=== PATIENT | male | born 1960 | race Caucasian/White ===

== ENCOUNTER → 2020-06-22 | Outpatient (CLI) | payer MEDICAID ==
--- NOTE | 2020-06-22 09:15 | CT ---
EXAMINATION TYPE: CT sinus wo con DATE OF EXAM: 06/22/2020 COMPARISON: None HISTORY: chronic sinus drainage CT DLP: 679.[address] of the paranasal sinuses was performed in the axial and coronal planes. Bone and soft tissue settings are submitted. The paranasal sinuses demonstrate normal aeration and development. Mucous retention cyst right maxillary sinus measuring 2.2 x 1.9 cm. Remaining paranasal sinuses are w ell-aerated. The osteal meatal units are patent bilaterally. The nasal septum is midline. No bony destructive changes are seen within the field of view. IMPRESSION: Mucous retention cyst right maxillary sinus measuring 2.2 x 1.9 cm.
== END | disposition home or self-care (01) ==
LOC: RADCTMAIN 08:29
PROVIDERS: ATTEND Otolaryngology
DX: J34.1 Cyst and mucocele of nose and nasal sinus (principal); J32.9 Chronic sinusitis, unspecified
CPT/HCPCS: 70486